=== PATIENT | female | born 1955 | race Caucasian/White ===

== ENCOUNTER 2017-04-14 16:48 | Emergency (ER) | payer BC ==
[~2017-04-14 16:48] MED LIST: MULTIPLE VIT PO
== END 2017-04-15 17:49 | disposition left against medical advice (07) ==
LOC: ER 16:48
DX: Z53.21 Procedure and treatment not carried out due to patient leaving prior to being seen by health care provider (principal)
CPT/HCPCS: 80053; 81001; 83690; 85025